=== PATIENT | female | born 1930 | race Caucasian/White ===

== ENCOUNTER 2016-09-21 05:21 | Emergency (ER) | payer OTHER ==
[~2016-09-21] VITALS: Ht 162.6 cm; Wt 66.6 kg
[2016-09-21] MEDS ORDERED: METHOCARBAMOL 750 MG TABLET ONE (05:54)
[2016-09-21] MEDS ORDERED: HYDROcodone/APAP 5/325 TABLET ONE (05:57)
[2016-09-21] MEDS ORDERED: METHOCARBAMOL 750 MG TABLET PO ONE (06:00)
[2016-09-21] MEDS ORDERED: HYDROcodone/APAP 5/325 TABLET PO ONE (06:00)
[2016-09-21 07:07] VITALS: BP 157/71
== END 2016-09-21 07:46 | disposition home or self-care (01) ==
LOC: ED 07:30
DX: M47.896 Other spondylosis, lumbar region (principal)
CPT/HCPCS: 72110; 99284